=== PATIENT | male | born 2000 | race Hispanic/Latino ===

== ENCOUNTER → 2021-02-14 | Emergency (ER) | payer OTHER ==
[~2021-02-14] VITALS: Ht 165.1 cm; Wt 59.0 kg
[2021-02-14 14:42] VITALS: BP 142/71
== END | disposition left against medical advice (07) ==
LOC: EDH 14:41
DX: R11.0 Nausea (principal); Z20.822 Contact with and (suspected) exposure to COVID-19; Z53.21 Procedure and treatment not carried out due to patient leaving prior to being seen by health care provider
CPT/HCPCS: 87635; 87804 ×2; C9803